=== PATIENT | male | born 1990 | race Caucasian/White ===

== ENCOUNTER 2021-01-27 11:56 | Emergency (ER) | payer OTHER ==
[2021-01-27] MEDS ORDERED: SODIUM CHLORIDE 0.9% 1,000 ML IV STA (12:27)
[2021-01-27] MEDS ORDERED: ACETAMINOPHEN TAB 500 MG TAB PO STA (12:27)
[2021-01-27] MEDS ORDERED: IBUPROFEN 600 MG TAB PO STA (12:27)
[2021-01-27] MEDS ORDERED: BAMLANIVIMAB (EUA) 700 MG, ETESEVIMAB (EUA) 1,400 MG in SODIUM CHLORIDE 0.9% 50 ML IVPB ONE (13:00)
[2021-01-27 13:09] VITALS: RESP 18
--- NOTE | 2021-01-27 13:53 | ED ---
URI HPI - General Chief Complaint: Upper Respiratory Infection Stated Complaint: SOB,COVID +, cough Time Seen by Provider: 01/27/21 12:07 Source: patient Mode of arrival: ambulatory Limitations: no limitations - History of Present Illness Initial Comments: Patient is a 30-year-old male presenting to the emergency Department with complaints of worsening Covid symptoms. Patient states his symptoms started about 5 days ago, he had a positive test result 3 days ago. He is complaining of a cough, fatigue and body aches. He states his been trying to take Tylenol and Motrin "here and there without improvement." He does admit to some shortness of breath with exertion, intermittent fevers. Does admit to some nausea, no vomiting or diarrhea. No stiff abdominal pain. He denies history of asthma or COPD, admits to being a smoker. He did not take any Tylenol or Motrin today. He has no further complaints at this time. Upon arrival to the ER, mild fever 99.8, slightly tachycardia at 109, 97% on room air. - Related Data Previous Rx's Medication Instructions Recorded Albuterol Inhaler [Ventolin Hfa 1 puff INHALATION RT-QID PRN #1 01/27/21 Inhaler] puff Dexamethasone [Decadron] 6 mg PO DAILY 5 Days #5 tablet 01/27/21 Allergies Allergy/AdvReac Type Severity Reaction Status Date / Time amoxicillin Allergy Vomiting Verified 01/27/21 12:01 Penicillins Allergy Vomiting Verified 01/27/21 12:01 Review of Systems ROS Statement: Those systems with pertinent positive or pertinent negative responses have been documented in the HPI. ROS Other: All systems not noted in ROS Statement are negative. Past Medical History Past Medical History: No Reported History History of Any Multi-Drug Resistant Organisms: None Reported Past Surgical History: No Surgical Hx Reported Past Psychological History: No Psychological Hx Reported Smoking Status: Current some day smoker Past Alcohol Use History: Occasional Past Drug Use History: Marijuana General Exam - General Exam Comments Initial Comments: GENERAL: Patient is well-developed and well-nourished. Patient is nontoxic and in no acute distress. HEAD: Atraumatic, normocephalic. EYES: Pupils equal round and reactive to light, extraocular movements intact, sclera anicteric, conjunctiva are normal. Eyelids were unremarkable. ENT: TMs normal, nares patent, oropharynx clear without exudates. Moist mucous membranes. NECK: Normal range of motion, supple without lymphadenopathy or JVD. LUNGS: Unlabored respirations. Breath sounds clear to auscultation bilaterally and equal. No wheezes rales or rhonchi. HEART: Regular rate and rhythm without murmurs, rubs or gallops. ABDOMEN: Soft, nontender, normoactive bowel sounds. No guarding, no rebound. No masses appreciated. : Deferred MUSCULOSKELETAL: Normal extremities with adequate strength and normal range of motion, no pitting or edema. No clubbing or cyanosis. NEUROLOGICAL: Patient is alert and oriented x 3. Motor and sensory are also intact. Cranial nerves II through XII grossly intact. Symmetrical smile. Normal speech, normal gait. PSYCH: Normal mood, normal affect. SKIN: Warm, Dry, normal turgor, no rashes or lesions noted. Limitations: no limitations Course Vital Signs 01/27/21 01/27/21 01/27/21 11:58 13:05 14:12 Temperature 99.8 F H 100.3 F H 99.3 F Pulse Rate 109 H 107 H 97 Respiratory 24 18 18 Rate Blood Pressure 136/90 124/81 111/60 O2 Sat by Pulse 97 94 L 96 Oximetry 01/27/21 15:05 Temperature Pulse Rate 98 Respiratory 18 Rate Blood Pressure 103/67 O2 Sat by Pulse 97 Oximetry Medical Decision Making - Medical Decision Making Patient is a 30-year-old male here with [place] symptoms. His symptoms started 5 days ago, positive test was 3 days ago. He did arrive slightly febrile and tachycardia, 97% on room air. His exam is unremarkable. Chest x-ray shows new infiltrate at the left lung base, no other acute findings. Patient received fluids, ibuprofen and Tylenol. Patient also needs cough occasions for cold and antibiotic therapy. Patient did receive this therapy, no adverse side effects. His vital signs have improved, remained stable. Patient is stable for discharge. I will give him a course of steroids, an inhaler for his symptoms. He can continue Tylenol Motrin for his body aches and chills. He can continue to increase fluids. He is in agreement this plan of care. Return parameters were discussed with the patient and he verbalized understanding. Case discussed with Dr. Monreal. Disposition Clinical Impression: COVID-19 Disposition: HOME SELF-CARE Condition: Stable Instructions (If sedation given, give patient instructions): Coronavirus Disease 2019 (COVID-19) Additional Instructions: Please return to the Emergency Department if symptoms worsen or any other josé rns. Take steroids as prescribed, use inhaler for shortness of breath. Continue to alternate between Tylenol and Motrin for fever and body aches. Follow-up with your family doctor. Prescriptions: Dexamethasone [Decadron] 6 mg PO DAILY 5 Days #5 tablet Albuterol Inhaler [Ventolin Hfa Inhaler] 1 puff INHALATION RT-QID PRN #1 puff PRN Reason: Shortness Of Breath Is patient prescribed a controlled substance at d/c from ED?: No Referrals: None,Stated [Primary Care Provider] - 1-2 days Time of Disposition: 15:10
--- NOTE | 2021-01-27 14:14 | XR ---
EXAMINATION TYPE: XR chest 2V DATE OF EXAM: 01/27/2021 COMPARISON: 08/15/2012 HISTORY: Cough TECHNIQUE: FINDINGS: There is some minimal density at the left lung base. The other lung montoya are clear. There are no hilar masses. Heart size is normal. There is no heart failure. Bony thorax is intact. IMPRESSION: New mild subsegmental atelectasis or infiltrate at the left lung base compared to old exa m. Normal heart.
[2021-01-27] MEDS ORDERED: KETOROLAC 15 MG/ML 1 ML VIAL IVP STA (14:36)
[2021-01-27 15:07] VITALS: BP 103/67; PULSE 98
[2021-01-27 15:10] VITALS: TEMP 98.2
== END 2021-01-27 15:28 | disposition home or self-care (01) ==
LOC: EC 11:56
DX: U07.1 COVID-19 (principal)
CPT/HCPCS: 71046; 99284; 96374; 96361 ×2; J1885; Q0245

== ENCOUNTER → 2024-12-28 | Outpatient (CLI) | payer BC ==
--- NOTE | 2024-12-28 18:31 | CA ---
Transthoracic Echo Report Name: Manan Werner Age: 34 Gender: M : 1990 Exam Date: 12/28/2024 15:53 Exam Location: [facility] Ht (in): 67 Wt (lb): 217 Ordering Physician: Alphonso Ordaz MD Attending/Referring Phys: Alphonso Ordaz MD [employer] Clarita Mcguire, [facility] Procedure CPT: Indications: I51.7 CARDIOMEGALY R06.02 SHORTNESS OF BREATH Cardiac Hx: Technical Quality: Fair Contrast 1: Total Dose (mL): Contrast 2: Total Dose (mL): MEASUREMENTS (Male / Female) Normal Values 2D ECHO LV Diastolic Diameter PLAX 4.6 cm 4.2 - 5.9 / 3.9 - 5.3 cm LV Systolic Diameter PLAX 3.3 cm IVS Diastolic Thickness 1.0 cm 0.6 - 1.0 / 0.6 - 0.9 cm LVPW Diastolic Thickness 0.9 cm 0.6 - 1.0 / 0.6 - 0.9 cm LV Relative Wall Thickness 0.4 LVOT Diameter 2.3 cm LV Diastolic Volume MOD BP 113.8 cm??? 67 - 155 / 56 - 104 cm??? LV Systolic Volume MOD BP 47.4 cm??? 22 - 58 / 19 - 49 cm??? LV Ejection Fraction MOD BP 58.4 % >= 55 % LV Cardiac Index MOD BP 3058.3 cm???/min???m??? LV Diastolic Volume MOD 4C 116.7 cm??? LV Systolic Volume MOD 4C 47.0 cm??? LV Ejection Fraction MOD 4C 59.8 % LV Cardiac Index MOD 4C 3212.0 cm???/min???m??? LV Diastolic Length 4C 8.4 cm LV Systolic Length 4C 6.8 cm LV Diastolic Volume MOD 2C 110.8 cm??? LV Systolic Volume MOD 2C 46.5 cm??? LV Ejection Fraction MOD 2C 58.1 % LV Cardiac Index MOD 2C 2961.3 cm???/min???m??? LV Diastolic Length 2C 8.4 cm LV Systolic Length 2C 6.6 cm LA Volume 39.2 cm??? 18 - 58 / 22 - 52 cm??? LA Volume Index 17.9 cm???/m??? 16 - 28 cm???/m??? Ascending Aorta Diameter 2.7 cm DOPPLER AV Peak Velocity 105.6 cm/s AV Peak Gradient 4.5 mmHg AV Mean Velocity 74.5 cm/s AV Mean Gradient 2.5 mmHg AV Velocity Time Integral 19.9 cm LVOT Peak Velocity 134.1 cm/s LVOT Peak Gradient 7.2 mmHg LVOT Velocity Time Integral 24.0 cm LVOT Stroke Volume 98.8 cm??? LVOT Stroke Volume Index 47.2 ml/m??? LVOT Cardiac Index 4548.0 cm???/min???m??? AV Area Cont Eq vti 5.0 cm??? AV Area Cont Eq pk 5.2 cm??? MV Area PHT 4.2 cm??? Mitral E Point Velocity 85.8 cm/s Mitral A Point Velocity 62.0 cm/s Mitral E to A Ratio 1.4 MV Deceleration Time 181.7 ms PV Peak Velocity 77.5 cm/s PV Peak Gradient 2.4 mmHg FINDINGS Left Ventricle Left ventricular ejection fraction is estimated at 55-60 %. Left ventricular cavity size normal. Left ventricular wall thickness normal. No obvious regional wall motion abnormalities. Normal left ventricular diastolic filling pattern. Right Ventricle Normal right ventricular size and function. Unable to estimate the right ventricular systolic pressure. Right Atrium Normal right atrial size. Left Atrium Normal left atrial size. Mitral Valve Structurally normal mitral valve. No evidence for mitral valve prolapse. No mitral stenosis. Mild mitral regurgitation. Aortic Valve Trileaflet aortic valve. No aortic valve stenosis or regurgitation. Tricuspid Valve Structurally normal tricuspid valve. No tricuspid stenosis. Mild tricuspid regurgitation. Pulmonic Valve Structurally normal pulmonic valve. No pulmonic stenosis. Trace pulmonic regurgitation. Pericardium No pericardial effusion. Aorta Normal size aortic root and proximal ascending aorta. CONCLUSIONS 1. Normal ventricular size and systolic function 2. Mild mitral and tricuspid regurgitation Previewed by: Dr. Nenita Maloney MD (Electronically Signed) Final Date: 28 December 2024 18:31
== END | disposition home or self-care (01) ==
LOC: RADECHMAIN 15:48
PROVIDERS: ATTEND Family Medicine
DX: I08.1 Rheumatic disorders of both mitral and tricuspid valves (principal)
CPT/HCPCS: 93306